=== PATIENT | male | born 1995 | race Two or more races ===

== ENCOUNTER 2018-04-01 05:22 | Emergency (ER) | payer SELFPAY ==
[~2018-04-01] VITALS: Ht 167.6 cm; Wt 84.8 kg
[2018-04-01 05:40] VITALS: BP 114/84
--- NOTE | 2018-04-01 05:53 | Emergency Room Report ---
History of Present Illness General Chief Complaint: Chest Pain Source: Patient Present Illness HPI Is a 22-year-old male with no past medical history. He was drinking last night. He woke up today with chest pain that go down his left side of his whole body. [place] numbness to his fingers. Denies any fever chills but no nausea no vomiting. No fever chills but never this problem before. No other complaint. Allergies: Coded Allergies: No Known Allergies (Unverified , 04/01/18) Patient History Past Medical History: see triage record, old chart reviewed Past Surgical History: none Pertinent Family History: none Social History: Reports: alcohol use Immunizations: other Reviewed Nursing Documentation: PMH: Agreed; PSxH: Agreed Nursing Documentation-PMH Past Medical History: No Stated History Review of Systems Eye: Denies: eye pain, blurred vision ENT: Denies: ear pain, nose congestion, throat swelling Respiratory: Denies: cough, shortness of breath Cardiovascular: Reports: chest pain; Denies: palpitations Gastrointestinal: Denies: abdominal pain, diarrhea, nausea, vomiting Musculoskeletal: Denies: back pain, joint pain Skin: Denies: rash Neurological: Denies: headache, numbness Endocrine: Denies: increased thirst, increased urine Hematologic/Lymphatic: Denies: easy bruising All Other Systems: negative except mentioned in HPI Physical Exam Vital Signs Date Time Temp Pulse Resp B/P (MAP) Pulse Ox O2 Delivery O2 Flow Rate FiO2 04/01/18 05:30 98.1 65 18 119/79 97 Room Air vitals normal Sp02 EP Interpretation: reviewed, normal General Appearance: well appearing, no apparent distress, alert Head: normocephalic, atraumatic Eyes: bilateral eye PERRL, bilateral eye EOMI ENT: hearing grossly normal, normal pharynx Neck: full range of motion, supple, no meningismus Respiratory: chest non-tender, lungs clear, normal breath sounds Cardiovascular #1: regular rate, rhythm, no murmur Gastrointestinal: normal bowel sounds, non tender, no mass, no organomegaly, no bruit, non-distended Musculoskeletal: back normal, gait/station normal, normal range of motion Psychiatric: anxious Skin: warm/dry Medical Decision Making Diagnostic Impression: Primary Impression: Chest pain Qualified Codes: R07.9 - Chest pain, unspecified Additional Impressions: Anxiety Alcoholic gastritis without bleeding Qualified Codes: K29.20 - Alcoholic gastritis without bleeding ER Course She present with chest pain most likely secondary to alcoholic gastritis since he was drinking last night. No evidence of ACS, PE, dissection. He is a little nervous so probably causing numbness to his body. Denies any other complaint. No evidence of ACS, PE, dissection to name a few. EKG Diagnostic Results Rate: normal Rhythm: NSR ST Segments: no acute changes Rhythm Strip Diag. Results EP Interpretation: yes Rate: 63 Rhythm: NSR, no PVC's, no ectopy Last Vital Signs Date Time Temp Pulse Resp B/P (MAP) Pulse Ox O2 Delivery O2 Flow Rate FiO2 04/01/18 05:30 98.1 65 18 119/79 97 Room Air Status: improved Disposition: HOME, SELF-CARE Condition: Stable Additional Instructions: Stop taking alcohol. Follow-up with your doctor in 7 days. Return if symptom worsen. Haris eDe MD Apr 01, 2018 05:53
[2018-04-01] MEDS ORDERED: Mylanta II UD 30ml ORAL ONE (06:00)
[2018-04-01 06:05] VITALS: BP 127/84
--- NOTE | 2018-04-03 16:42 | Cardiology Report ---
APPROVED REPORT EKG Measurement Heart [id number] Normal sinus rhythm Rightward axis Borderline ECG
== END 2018-04-01 06:20 | disposition home or self-care (01) ==
LOC: EMR 05:55
DX: R07.9 Chest pain, unspecified (principal); F41.9 Anxiety disorder, unspecified; K29.20 Alcoholic gastritis without bleeding
CPT/HCPCS: 93005; 99283